=== PATIENT | female | born 1950 | race Caucasian/White ===

== ENCOUNTER → 2016-05-16 | Outpatient (CLI) | payer MEDICARE, OTHER | LOC: M WUC 12:10 | DX: E11.65 Type 2 diabetes mellitus with hyperglycemia (principal) ==

== ENCOUNTER → 2016-08-25 | Outpatient (CLI) | payer MEDICARE, OTHER ==
[2016-08-25 17:25] LABS: ALBUMIN 3.8 GM/DL (3.2-5.2); ALBUMIN/GLOBULIN RATIO 1.31 (1.00-1.93); ALKALINE PHOSPHATASE 92 U/L (45-117); ALT/SGPT 28 U/L (12-78); ANION GAP 9 MEQ/L (8-16); AST/SGOT 20 U/L (15-37); BILIRUBIN,TOTAL 0.7 MG/DL (0.2-1.0); BLOOD UREA NITROGEN 15 MG/DL (7-18); CALCIUM LEVEL 9.1 MG/DL (8.8-10.2); CARBON DIOXIDE LEVEL 27 MEQ/L (21-32); CHLORIDE LEVEL 104 MEQ/L (98-107); CHOLESTEROL LEVEL 190 MG/DL (<200); CREATININE FOR GFR 0.62 MG/DL (0.55-1.02); GLOMERULAR FILTRATION RATE > 60.0 (>45); GLUCOSE, FASTING 190 MG/DL (80-110); POTASSIUM SERUM 4.3 MEQ/L (3.5-5.1); SODIUM LEVEL 140 MEQ/L (136-145); TOTAL PROTEIN 6.7 GM/DL (6.4-8.2); TRIGLYCERIDES LEVEL 283 MG/DL (<150)
== END ==
LOC: M WUC 11:51
PROVIDERS: ATTEND Family Medicine
DX: E78.5 Hyperlipidemia, unspecified (principal); E11.9 Type 2 diabetes mellitus without complications

== ENCOUNTER → 2017-01-11 | Outpatient (CLI) | payer MEDICARE, OTHER ==
[2017-01-11 13:55] LABS: FREE T4 1.1 NG/DL (0.76-1.46)
== END ==
LOC: M WUC 09:08
PROVIDERS: ATTEND Family Medicine
DX: L74.519 Primary focal hyperhidrosis, unspecified (principal); E11.69 Type 2 diabetes mellitus with other specified complication

== ENCOUNTER → 2017-04-17 | Outpatient (CLI) | payer MEDICARE, OTHER ==
[2017-04-17 13:31] LABS: ESTIMATED AVERAGE GLUCOSE 189 MG/DL (60-110); HEMOGLOBIN A1c 8.2 %
[2017-04-17 13:51] LABS: MALB URINE SIEMENS 31.5 MG/L; MAU/CREAT RATIO 19.3 MCG/MG (0.0-30.0)
== END ==
LOC: M WUC 10:21
DX: E11.69 Type 2 diabetes mellitus with other specified complication (principal)
CPT/HCPCS: 83036

== ENCOUNTER → 2017-07-21 | Outpatient (CLI) | payer MEDICARE, BC ==
[2017-07-21 12:09] LABS: ESTIMATED AVERAGE GLUCOSE 180 MG/DL (60-110); HEMOGLOBIN A1c 7.9 %
== END ==
LOC: M WUC 10:40
DX: E11.69 Type 2 diabetes mellitus with other specified complication (principal)
CPT/HCPCS: 83036

== ENCOUNTER → 2017-10-09 | Outpatient (REF) | payer MEDICARE, OTHER ==
[2017-10-09 16:31] LABS: FERRITIN 202 NG/ML (8-252); FREE T4 1.11 NG/DL (0.76-1.46)
== END ==
LOC: M SFHCPLAZ 10:20
DX: Z00.00 Encounter for general adult medical examination without abnormal findings (principal); L65.9 Nonscarring hair loss, unspecified
CPT/HCPCS: 84443

== ENCOUNTER 2017-10-30 08:31 | Emergency (ER) | payer MEDICARE, BC, OTHER ==
[2017-10-30 09:42] LABS: BASO % 0.3 % (0.0-1.0); EOS # 0.2 10^3/uL (0.0-0.50); EOS % 1.7 % (0.0-3.0); HEMATOCRIT 40.6 % (36.0-47.0); HEMOGLOBIN 13.8 g/dl (12.0-15.5); IMMATURE GRANULOCYTE % 0.7 % (0-3.0); LYMPH # 1.6 10^3/uL (1.5-4.5); LYMPH % 12.9 % (24.0-44.0); MEAN CORPUSCULAR HEMOGLOBIN 30.3 pg (27.0-33.0); MEAN CORPUSCULAR VOLUME 89.2 fl (80.0-96.0); MONO % 8.5 % (0.0-5.0); NEUTROPHILS # 9.2 10^3/uL (1.8-7.7); NEUTROPHILS % 75.9 % (36.0-66.0); PLATELET COUNT, AUTOMATED 230 10^3/uL (150-450); RED BLOOD COUNT 4.55 10^6/uL (4.00-5.40); RED CELL DISTRIBUTION WIDTH 13.4 % (11.5-14.5); WHITE BLOOD COUNT 12.1 10^3/uL (4.0-10.0)
[2017-10-30] MEDS: GI COCKTAIL 50ML BTL(HYOSCYAMINE/MAALOX/LIDOCAINE VISCOUS)(1:3:1) PO (10:00)
[2017-10-30 10:33] LABS: ALBUMIN 3.6 GM/DL (3.2-5.2); ALBUMIN/GLOBULIN RATIO 1.03 (1.00-1.93); ALKALINE PHOSPHATASE 89 U/L (45-117); ALT/SGPT 27 U/L (12-78); ANION GAP 10 MEQ/L (8-16); AST/SGOT 22 U/L (7-37); BILIRUBIN,DIRECT 0.1 MG/DL (0.0-0.2); BILIRUBIN,TOTAL 0.5 MG/DL (0.2-1.0); BLOOD UREA NITROGEN 18 MG/DL (7-18); CALCIUM LEVEL 8.7 MG/DL (8.8-10.2); CARBON DIOXIDE LEVEL 24 MEQ/L (21-32); CHLORIDE LEVEL 103 MEQ/L (98-107); CPK CREATINE PHOSPHOKINASE 185 U/L (26-192); CREATININE FOR GFR 0.82 MG/DL (0.55-1.30); GLOMERULAR FILTRATION RATE > 60.0 (>45); GLUCOSE, FASTING 290 MG/DL (70-100); LIPASE 169 U/L (73-393); POTASSIUM SERUM 3.8 MEQ/L (3.5-5.1); SODIUM LEVEL 137 MEQ/L (136-145); TOTAL PROTEIN 7.1 GM/DL (6.4-8.2); TROPONIN I < 0.02 NG/ML (< 0.10)
[2017-10-30 10:38] LABS: CK-MB VALUE MASS 2.5 NG/ML (<3.6); FREE T4 1.04 NG/DL (0.76-1.46); MB/CK RELATIVE INDEX 1.35 (< OR =4)
[2017-10-30 13:40] LABS: CPK CREATINE PHOSPHOKINASE 147 U/L (26-192); MB/CK RELATIVE INDEX 1.36 (< OR =4); TROPONIN I < 0.02 NG/ML (< 0.10)
== END 2017-10-30 14:45 | disposition home or self-care (01) ==
LOC: M ED 08:31
DX: K21.9 Gastro-esophageal reflux disease without esophagitis (principal); E11.9 Type 2 diabetes mellitus without complications; I10 Essential (primary) hypertension; E78.5 Hyperlipidemia, unspecified; E66.9 Obesity, unspecified; G47.30 Sleep apnea, unspecified; F41.9 Anxiety disorder, unspecified; F32.9 Major depressive disorder, single episode, unspecified; K58.0 Irritable bowel syndrome with diarrhea; Z79.82 Long term (current) use of aspirin; Z79.84 Long term (current) use of oral hypoglycemic drugs; Z79.899 Other long term (current) drug therapy; Z88.0 Allergy status to penicillin; Z88.5 Allergy status to narcotic agent; Z88.1 Allergy status to other antibiotic agents
CPT/HCPCS: 71045

== ENCOUNTER → 2017-11-04 | Outpatient (CLI) | payer MEDICARE, BC, OTHER ==
[2017-11-04 18:06] LABS: ESTIMATED AVERAGE GLUCOSE 212 MG/DL (60-110)
== END ==
LOC: M WUC 13:00
DX: E11.69 Type 2 diabetes mellitus with other specified complication (principal)
CPT/HCPCS: 83036

== ENCOUNTER → 2018-01-03 | Outpatient (REF) | payer MEDICARE, OTHER | LOC: M LAB REF 16:44 | DX: K62.5 Hemorrhage of anus and rectum (principal) | CPT/HCPCS: 83993 ==

== ENCOUNTER → 2018-01-31 | Outpatient (CLI) | payer MEDICARE, OTHER ==
[~2018-01-31] MED LIST: AMLO5TAB4; ASPI81TA85 PO; CARV12.5; COLE1TAB; DULO1CAP3; GLIM4TAB; LOSA50TA73; MAGN64TASA PO; METF500T4; OMEP40CA2; SIMV40TA2; SUCR1SS PO; TRAD5TAB; TRIAMT/HCTZ
--- NOTE | 2018-01-31 19:18 | REP ---
Right shoulder: Three views. History: Shoulder pain. Findings: The right glenohumeral and acromioclavicular joints are normally aligned. Periarticular soft tissues are unremarkable. No erosive changes seen. Impression: Negative right shoulder radiographs. Electronically Signed by Deion Godoy MD 01/31/2018 07:10 P
== END ==
LOC: M RAD 17:41
PROVIDERS: ATTEND Nurse Practitioner Family
DX: M25.511 Pain in right shoulder (principal)
CPT/HCPCS: 73030; G0463

== ENCOUNTER → 2018-02-14 | Outpatient (CLI) | payer MEDICARE, BC, OTHER ==
--- NOTE | 2018-02-14 15:59 | REP ---
MRI right shoulder without contrast: History: Right shoulder impingement syndrome. Comparison shoulder radiographs January 31, 2018. Technique: Axial, oblique coronal and oblique sagittal imaging planes are utilized. T1 and T2-weighted scans were obtained in the usual fashion with and without fat saturation. MRI findings: Cortical and medullary bone signal intensity are normal. There is superior migration of the humeral head with narrowing and nearly complete obliteration of the subacromial space indicating a complete retracted full-thickness supraspinatus cuff tear. There is glenohumeral and subacromial subdeltoid joint and bursal effusion. There is bony hypertrophy on the undersurface of the acromion process. 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 No loose body is appreciated. The infraspinatus and subscapularis tendons appear intact. Biceps tendon is in the bony bicipital groove and appears intact. No labral cartilage tear is appreciated. There is a periarticular soft tissue edema pattern fairly diffusely. Impression: Joint effusion and subacromial subdeltoid bursal effusion associated with complete retracted supraspinatus cuff tear and narrowing of the subacromial space. Acromion process spurring and AC joint spurring are seen. Electronically Signed by Deion Godoy MD 02/14/2018 08:42 P
== END ==
LOC: M RAD 11:14
PROVIDERS: ATTEND Orthopaedic Surgery Sports Medicine
DX: M75.41 Impingement syndrome of right shoulder (principal)

== ENCOUNTER → 2018-07-26 | Outpatient (CLI) | payer MEDICARE, OTHER, BC ==
[~2018-07-26] MED LIST changes: -AMLO5TAB4; +AMLO5TAB6; -LOSA50TA73; +LOSA50TA88
[2018-07-26 16:50] LABS: BLOOD UREA NITROGEN 16 MG/DL (7-18); CALCIUM LEVEL 9.7 MG/DL (8.8-10.2); CARBON DIOXIDE LEVEL 30 MEQ/L (21-32); CHLORIDE LEVEL 102 MEQ/L (98-107); CHOLESTEROL LEVEL 203 MG/DL (<200); CHOLESTEROL RISK RATIO 4.833 (<5); CREATININE FOR GFR 0.77 MG/DL (0.55-1.30); GLOMERULAR FILTRATION RATE > 60.0 (>45); GLUCOSE, FASTING 241 MG/DL (70-100); HDL CHOLESTEROL 42 MG/DL (>40); LDL CHOLESTEROL 105 MG/DL (<100); MAGNESIUM LEVEL 2.2 MG/DL (1.8-2.4); NON-HDL-C 161 MG/DL; POTASSIUM SERUM 4.6 MEQ/L (3.5-5.1); SODIUM LEVEL 139 MEQ/L (136-145); TRIGLYCERIDES LEVEL 280 MG/DL (<150)
[2018-07-26 16:58] LABS: TOTAL 25(OH) VITAMIN D 33.2 NG/ML (30.0-100.0)
[2018-07-26 17:22] LABS: MALB URINE SIEMENS 30.8 MG/L; MAU/CREAT RATIO 22.4 MCG/MG (0.0-30.0)
== END ==
LOC: M WUC 11:45
PROVIDERS: ATTEND Family Medicine
DX: E78.2 Mixed hyperlipidemia (principal); E83.42 Hypomagnesemia; I10 Essential (primary) hypertension; R53.82 Chronic fatigue, unspecified

== ENCOUNTER → 2018-08-21 | Outpatient (CLI) | payer MEDICARE, BC ==
--- NOTE | 2018-08-21 12:47 | REPMRS ---
Patient History The patient states she has not had a clinical breast exam in over a year. Family history of colorectal cancer at age 50 or over in maternal grandfather, breast cancer under age 50 in maternal cousin. Digital Woman Screen Mammo: August 21, 2018 - Exam #: [id number] Bilateral CC and MLO view(s) were taken. Technologist: Sheela Arnold, Technologist Prior study comparison: June 27, 2017, digital woman screen mammo performed at [facility]. FINDINGS: There are scattered fibroglandular densities. Bilateral screening digital mammogram with tomosynthesis: The patient states that there are no palpable abnormalities or other breast complaints. The patient's Tyrer-Cuzieck Lifetime Breast Carcinoma Risk is:4.0%. There is no interval development of dominant mass, areas of architectural distortion, or clustered microcalcification typical of malignancy. There are no additional findings on tomosynthesis. This mammogram is interpreted with the aid of an FDA approved computer-aided detection system. Not all cancers are identified by mammography. Negative mammogram reports should not delay biopsy if a dominant or clinically suspicious mass is present. Adenosis and dense breasts may obscure an underlying neoplasm. No significant changes when compared with prior studies. Assessment: BI-RADS/ACR category 1 mammogram. Negative Mammogram. Recommendation Routine screening mammogram in 1 year (for women over age 40). This mammogram was interpreted with the aid of an FDA-approved computer-aided dectection system. A. Negative x-ray reports should not delay biopsy if a dominant or clinically suspicious mass is present. B. Not all cancers are identified by mammography. C. Adenosis and dense breast may obscure an underlying neoplasm. Electronically Signed By: Jm Ochoa M.D. 08/21/18 2920
== END ==
LOC: M WHC 11:09
PROVIDERS: ATTEND Family Medicine
DX: Z12.31 Encounter for screening mammogram for malignant neoplasm of breast (principal)

== ENCOUNTER → 2018-12-25 | Outpatient (REF) | payer MEDICARE, OTHER ==
[~2018-12-25] MED LIST changes: -DULO1CAP3; +DULO1CAP6; -GLIM4TAB; +GLIM4TAB3; +METF-791; -METF500T4; -OMEP40CA2; +OMEP40CA97
[2018-12-25 12:31] LABS: BLOOD UREA NITROGEN 17 MG/DL (7-18); CARBON DIOXIDE LEVEL 29 MEQ/L (21-32); CHLORIDE LEVEL 104 MEQ/L (98-107); CREATININE FOR GFR 0.69 MG/DL (0.55-1.30); FREE T4 1.01 NG/DL (0.76-1.46); GLOMERULAR FILTRATION RATE > 60.0 (>45); GLUCOSE, FASTING 209 MG/DL (70-100); POTASSIUM SERUM 4.1 MEQ/L (3.5-5.1); SODIUM LEVEL 140 MEQ/L (136-145)
== END ==
LOC: M SFHCPLAZ 09:39
PROVIDERS: ATTEND Nurse Practitioner Family
DX: I10 Essential (primary) hypertension (principal); R60.0 Localized edema
CPT/HCPCS: 36415; 80048; 84439; 84443; 90682; G0008; G0463

== ENCOUNTER → 2019-03-07 | Outpatient (CLI) | payer MEDICARE, BC, OTHER ==
[~2019-03-07] MED LIST changes: -SIMV40TA2; +SIMV40TA20
--- NOTE | 2019-03-07 12:40 | REP ---
NUCLEAR GASTRIC EMPTYING SCAN: Following the oral administration of 1.07 millicuries technetium 99, sulfur colloid in two scrambled eggs and 4 ounces of water, multiple images of the upper abdomen are performed for 90 minutes in the anterior and posterior projections. Gastric activity is measured. At the end of 90 minutes, approximately 40% of the ingested activity has emptied from the stomach. T-1/2 is calculated to be 99 minutes. This is essentially at the upper limits of normal. IMPRESSION: T-1/2 is calculated to be 99 minutes with a normal t-1/2 of 90 minutes. Therefore, gastric emptying time is upper limits of normal to slightly elevated. Electronically Signed by Jm Frost MD 03/07/2019 05:43 P
== END ==
LOC: M RAD 08:20
PROVIDERS: ATTEND Family Medicine
DX: R68.81 Early satiety (principal)
CPT/HCPCS: 78264; A9541

== ENCOUNTER → 2019-03-29 | Outpatient (CLI) | payer MEDICARE, BC, OTHER ==
[~2019-03-29] MED LIST changes: -GLIM4TAB3; +GLIM4TAB5
[2019-03-29 20:30] LABS: BLOOD UREA NITROGEN 19 MG/DL (7-18); CALCIUM LEVEL 9.2 MG/DL (8.8-10.2); CARBON DIOXIDE LEVEL 31 MEQ/L (21-32); CHLORIDE LEVEL 103 MEQ/L (98-107); CREATININE FOR GFR 0.83 MG/DL (0.55-1.30); GLOMERULAR FILTRATION RATE > 60.0 (>45); GLUCOSE, FASTING 222 MG/DL (70-100); POTASSIUM SERUM 4.4 MEQ/L (3.5-5.1); SODIUM LEVEL 140 MEQ/L (136-145)
== END ==
LOC: M WUC 15:42
PROVIDERS: ATTEND Family Medicine
DX: I10 Essential (primary) hypertension (principal)

== ENCOUNTER → 2019-04-16 | Outpatient (CLI) | payer MEDICARE, BC, OTHER ==
[~2019-04-16] MED LIST changes: +GASTROGRAFIN SOLUTION 30ML (Q9963) As Ordered ONE; +ISOVUE-370 76% 100ML VIAL (Q9967) As Ordered ONE
--- NOTE | 2019-04-16 13:00 | REP ---
Clinical: Abdominal pain. Technique: Axial contrast enhanced images from the lung bases to the pubic symphysis using oral (per protocol) and 100 ml Isovue 370 intravenous contrast material with coronal and sagittal re-formations. Comparison: 10/13/2006 Findings: Lung bases are clear. Visualized heart and pericardium normal. Liver, spleen, pancreas, bilateral adrenal glands and kidneys are normal. Evidence of prior cholecystectomy. The enteric system is without obstruction or acute inflammatory process. Sigmoid diverticulosis noted without acute diverticulitis. Pelvis demonstrates collapsed bladder and evidence for prior hysterectomy. 4 cm fat containing periumbilical hernia noted. No ascites. No free air. No adenopathy. Atherosclerotic changes to the aorta noted without aneurysm or dissection. Musculoskeletal structures demonstrate degenerative changes without acute focal abnormality. Impression: 1. No acute abdominopelvic pathology appreciated. 2. Diverticulosis without acute diverticulitis. 3. 4 cm fat containing periumbilical hernia. Electronically Signed by Hugh Herr MD 04/16/2019 12:51 P
== END ==
LOC: M RAD 09:33
PROVIDERS: ATTEND Family Medicine
DX: R10.84 Generalized abdominal pain (principal); K44.9 Diaphragmatic hernia without obstruction or gangrene; K57.92 Diverticulitis of intestine, part unspecified, without perforation or abscess without bleeding
CPT/HCPCS: 74177; Q9963; Q9967

== ENCOUNTER → 2019-08-20 | Outpatient (CLI) | payer MEDICARE, OTHER ==
[~2019-08-20] MED LIST changes: -GASTROGRAFIN SOLUTION 30ML (Q9963) As Ordered ONE; -ISOVUE-370 76% 100ML VIAL (Q9967) As Ordered ONE; -METF-791; +METF-838
[2019-08-20 10:44] LABS: ALBUMIN 3.7 GM/DL (3.2-5.2); ALT/SGPT 26 U/L (12-78); BILIRUBIN,TOTAL 0.6 MG/DL (0.2-1.0); BLOOD UREA NITROGEN 24 MG/DL (7-18); CALCIUM LEVEL 9.2 MG/DL (8.8-10.2); CARBON DIOXIDE LEVEL 29 MEQ/L (21-32); CHLORIDE LEVEL 103 MEQ/L (98-107); CHOLESTEROL LEVEL 188 MG/DL (<200); CHOLESTEROL RISK RATIO 5.081 (<5); CREATININE FOR GFR 0.91 MG/DL (0.55-1.30); GLOMERULAR FILTRATION RATE > 60.0 (>45); GLUCOSE, FASTING 232 MG/DL (70-100); HDL CHOLESTEROL 37 MG/DL (>40); LDL CHOLESTEROL 106 MG/DL (<100); NON-HDL-C 151 MG/DL; POTASSIUM SERUM 4.2 MEQ/L (3.5-5.1); SODIUM LEVEL 136 MEQ/L (136-145); TOTAL PROTEIN 6.8 GM/DL (6.4-8.2); TRIGLYCERIDES LEVEL 227 MG/DL (<150)
[2019-08-20 11:11] LABS: MALB URINE SIEMENS 22.6 MG/L; MAU/CREAT RATIO 15.8 MCG/MG (0.0-30.0)
== END ==
LOC: M PLALAB 08:14
PROVIDERS: ATTEND Nurse Practitioner Family
DX: E11.65 Type 2 diabetes mellitus with hyperglycemia (principal); E78.2 Mixed hyperlipidemia

== ENCOUNTER → 2019-08-20 | Outpatient (CLI) | payer MEDICARE, OTHER ==
--- NOTE | 2019-08-20 08:43 | REPPI ---
Left foot series: Four views. History: Swelling. Findings: Four views of the left foot show overall normal mineralization. There is plantar and Achilles calcaneal spurring. Mild midfoot osteoarthritic spurring is seen. There is no evidence of periosteal reaction, fracture, or other acute bony abnormality. Impression: Heel spurring and mild midfoot osteoarthritic spurring. No acute bony abnormality seen. Electronically Signed by Deion Godoy MD 08/20/2019 08:35 A
== END ==
LOC: M PLAIMG 08:11
PROVIDERS: ATTEND Family Medicine
DX: M77.32 Calcaneal spur, left foot (principal); M19.072 Primary osteoarthritis, left ankle and foot; M79.672 Pain in left foot; R22.42 Localized swelling, mass and lump, left lower limb; E11.65 Type 2 diabetes mellitus with hyperglycemia; E78.2 Mixed hyperlipidemia
CPT/HCPCS: 36415; 73630; 80053; 80061; 82043; 85025; 85652; 86140; G0463

== ENCOUNTER → 2019-08-20 | Outpatient (REF) | payer MEDICARE, OTHER ==
[2019-08-20 10:36] LABS: BASO % 0.2 % (0.0-1.0); EOS # 0.2 10^3/uL (0.0-0.5); EOS % 2.4 % (0.0-3.0); HEMATOCRIT 44.8 % (36.0-47.0); HEMOGLOBIN 14.8 g/dl (12.0-15.5); LYMPH # 2.1 10^3/uL (1.5-5.0); MEAN CORPUSCULAR VOLUME 90.7 fl (80.0-96.0); MONO # 0.8 10^3/uL (0.0-0.8); MONO % 8.2 % (0.0-5.0); NEUTROPHILS # 6.4 10^3/uL (1.5-8.5); NEUTROPHILS % 66.8 % (36.0-66.0); PLATELET COUNT, AUTOMATED 277 10^3/uL (150-450); RED BLOOD COUNT 4.94 10^6/uL (4.00-5.40); WHITE BLOOD COUNT 9.6 10^3/uL (4.0-10.0)
[2019-08-20 10:58] LABS: ERYTHROCYTE SEDIMENTATION RATE 12 mm/hr (0-30)
== END ==
LOC: M SFHCPLAZ 08:10
PROVIDERS: ATTEND Family Medicine
DX: M79.672 Pain in left foot (principal); R22.42 Localized swelling, mass and lump, left lower limb

== ENCOUNTER → 2019-10-10 | Outpatient (CLI) | payer MEDICARE, OTHER ==
[~2019-10-10] MED LIST changes: +AMLO1TAB24; -AMLO5TAB6; -ASPI81TA85 PO; +ASPI81TA86 PO
== END ==
LOC: M WHC 14:31
PROVIDERS: ATTEND Family Medicine
DX: Z12.31 Encounter for screening mammogram for malignant neoplasm of breast (principal)

== ENCOUNTER → 2019-10-10 | Outpatient (CLI) | payer MEDICARE, BC, OTHER ==
[~2019-10-10] MED LIST changes: +PROHANCE 279.3MG/ML 15ML VIAL ONE; +PROHANCE 279.3MG/ML 5ML VIAL ONE
--- NOTE | 2019-11-22 10:02 | REP ---
MRI OF LEFT FOOT WITH AND WITHOUT CONTRAST INDICATION: Palpable tender lump proximal left fifth metatarsal, recurrent cellulitis, poorly controlled diabetes. TECHNIQUE: Multiple sequences obtained in the axial, coronal and sagittal planes prior to and following the intravenous administration of 20 mL of ProHance. FINDINGS: Scattered, ill-defined, high signal is seen on T2 weighted images in the dorsal and lateral soft tissue of the foot, predominantly in the mid-foot. Post-contrast images, there is some ill-defined enhancement in the soft tissues along the lateral base of the fifth metatarsal. This is most consistent with an area of inflammation and cellulitis. No abscess is seen. There is no discrete enhancing mass. No other area of abnormal enhancement is seen. The osseous structures of the left foot demonstrate normal bone marrow signal with no bone marrow edema or enhancement. Tendons and ligaments at the ankle appear intact. The flexor and extensor tendons of the foot appear intact with no evidence of tenosynovitis. There is not a significant joint effusion IMPRESSION: Scattered edema in the left lateral mid foot extending in to the dorsal soft tissues of the foot. Ill-defined enhancement in the soft tissues adjacent to the lateral base of the fifth metatarsal, most consistent with a n area of focal inflammation and cellulitis. The area of enhancement is slightly greater than 1 cm in diameter. There is no discrete enhancing mass or evidence of focal fluid collection or abscess. There is no osteomyelitis. MTDD
== END ==
LOC: M RAD 16:15
PROVIDERS: ATTEND Family Medicine
DX: L03.116 Cellulitis of left lower limb (principal)
CPT/HCPCS: 73720; A9576

== ENCOUNTER → 2019-10-28 | Outpatient (CLI) | payer MEDICARE, BC ==
[~2019-10-28] MED LIST changes: -PROHANCE 279.3MG/ML 15ML VIAL ONE; -PROHANCE 279.3MG/ML 5ML VIAL ONE
--- NOTE | 2019-10-28 15:01 | REPMRS ---
Patient History The patient states she had a clinical breast exam in September 2019. Family history of colorectal cancer at age 50 or over in maternal grandfather, breast cancer under age 50 in maternal cousin. 3D TOMOSYNTHESIS WAS PERFORMED. The Kacy Mims lifetime risk for breast cancer is 3.7%. DANYELL Gresham. Digital Woman Screen Mammo: October 28, 2019 - Exam #: [id number] Bilateral CC and MLO view(s) were taken. Technologist: Razia Martinez, Technologist Prior study comparison: August 21, 2018, bilateral digital woman screen mammo performed at [facility]. June 27, 2017, digital woman screen mammo performed at [facility]. FINDINGS: There are scattered fibroglandular densities. There has been no change in the appearance of the mammogram from the prior studies. There is a mild amount of residual fibroglandular tissue which is fairly symmetric. There is no interval development of dominant mass, architectural distortion, or clustered microcalcification suggestive of malignancy. Assessment: BI-RADS/ACR category 1 mammogram. Negative Mammogram. Recommendation Routine screening mammogram in 1 year (for women over age 40). This mammogram was interpreted with the aid of an FDA-approved computer-aided dectection system. Electronically Signed By: Jm Frost MD 10/28/19 6660
== END ==
LOC: M WHC 14:11
PROVIDERS: ATTEND Family Medicine
DX: Z12.31 Encounter for screening mammogram for malignant neoplasm of breast (principal)

== ENCOUNTER → 2019-12-14 | Outpatient (CLI) | payer MEDICARE, BC, OTHER | LOC: M LABSMTC 10:46 | PROVIDERS: ATTEND Pediatrics | DX: Z01.812 Encounter for preprocedural laboratory examination (principal); Z20.828 Contact with and (suspected) exposure to other viral communicable diseases | CPT/HCPCS: C9803; U0003 ==

== ENCOUNTER → 2020-05-24 | Outpatient (CLI) | payer MEDICARE, BC, OTHER ==
[~2020-05-24] MED LIST changes: +DULA3PEN SC; +ECOT81TA5 PO; +EFFE150C2 PO; +NOVOINJ3 SC; +TRES1INJ SC; +TRIA37.53 PO
== END ==
LOC: M LABSMTC 08:53
PROVIDERS: ATTEND Anesthesiology
DX: Z01.812 Encounter for preprocedural laboratory examination (principal); Z20.828 Contact with and (suspected) exposure to other viral communicable diseases

== ENCOUNTER → 2020-05-26 | Outpatient (REF) | payer MEDICARE, OTHER ==
[2020-05-26 18:35] LABS: BLOOD UREA NITROGEN 21 MG/DL (7-18); CALCIUM LEVEL 9.1 MG/DL (8.8-10.2); CARBON DIOXIDE LEVEL 30 MEQ/L (21-32); CHLORIDE LEVEL 105 MEQ/L (98-107); CHOLESTEROL LEVEL 200 MG/DL (<200); CHOLESTEROL RISK RATIO 4.545 (<5); GLOMERULAR FILTRATION RATE > 60.0 (>45); GLUCOSE, FASTING 133 MG/DL (70-100); HDL CHOLESTEROL 44 MG/DL (>40); LDL CHOLESTEROL 108 MG/DL (<100); MAGNESIUM LEVEL 2.1 MG/DL (1.8-2.4); NON-HDL-C 156 MG/DL; POTASSIUM SERUM 4.1 MEQ/L (3.5-5.1); SODIUM LEVEL 140 MEQ/L (136-145); TRIGLYCERIDES LEVEL 241 MG/DL (<150)
== END ==
LOC: M SFHCPLAZ 15:35
PROVIDERS: ATTEND Dietitian, Registered Nutrition, Metabolic
DX: E78.2 Mixed hyperlipidemia (principal); E11.69 Type 2 diabetes mellitus with other specified complication; I10 Essential (primary) hypertension; E83.42 Hypomagnesemia

== ENCOUNTER → 2020-06-17 | Outpatient (REF) | payer MEDICARE, OTHER | LOC: M LAB REF 16:51 | PROVIDERS: ATTEND Internal Medicine Gastroenterology | DX: K58.0 Irritable bowel syndrome with diarrhea (principal) ==

== ENCOUNTER → 2020-08-16 | Outpatient (CLI) | payer MEDICARE, OTHER ==
[~2020-08-16] MED LIST changes: +OMEP40CA4; -OMEP40CA97
== END ==
LOC: M LABSMTC 09:07
PROVIDERS: ATTEND Anesthesiology
DX: Z01.818 Encounter for other preprocedural examination (principal); Z11.52 Encounter for screening for COVID-19

== ENCOUNTER 2020-08-21 08:21 | Day surgery (SDC) | payer MEDICARE, BC, OTHER ==
[~2020-08-21] VITALS: Ht 154.9 cm; Wt 128.5 kg
[~2020-08-21 08:21] MED LIST changes: +NS 1,000 ML IV ONE
[2020-08-21] MEDS ORDERED: propofoL 200 MG/20 ML VIAL As Ordered ONE ×3 (08:50→09:37)
[2020-08-21] MEDS ORDERED: LIDOCAINE 2% 100MG/5ML SDV (FOR ANES.) As Ordered ONE (08:50)
--- NOTE | 2020-08-21 09:17 | ROOR ---
Patient Name: Chloe Johnston Procedure Date: 08/21/2020 9:05 AM Date of : 1950 Age: 70 Room: [facility] Gender: Female Note Status: Finalized Procedure: Upper GI endoscopy Indications: Abdominal pain, Heartburn Providers: Evan Hammer MD Referring MD: Krissy Owen MD Requesting Provider: Medicines: Monitored Anesthesia Care Complications: No immediate complications. Procedure: Pre-Anesthesia Assessment: - The heart rate, respiratory rate, oxygen saturations, blood pressure, adequacy of pulmonary ventilation, and response to care were monitored throughout the procedure. The Endoscope was introduced through the mouth, and advanced to the second part of duodenum. The upper GI endoscopy was accomplished without difficulty. The patient tolerated the procedure well. Findings: The esophagus was normal. The stomach was normal. (compliant, large volume) The examined duodenum was normal. Impression: - Normal esophagus. - Normal stomach. - Normal examined duodenum. - No specimens collected. Recommendation: - Continue present medications. - Follow an antireflux regimen. Procedure Code(s): --- Professional --- 79161, Esophagogastroduodenoscopy, flexible, transoral; diagnostic, including collection of specimen(s) by brushing or washing, when performed (separate procedure) Diagnosis Code(s): --- Professional --- R12, Heartburn R10.9, Unspecified abdominal pain CPT copyright 2019 [employer]. All rights reserved. The codes documented in this report are preliminary and upon stave grader review may be revised to meet current compliance requirements. Evan Hammer MD Evan Hammer MD 08/21/2020 9:16:35 AM Electronically signed by Evan Hammer MD Number of Addenda: 0 Note Initiated On: 08/21/2020 9:05 AM Estimated Blood Loss: Estimated blood loss: none.
--- NOTE | 2020-08-21 09:50 | ROOR ---
Patient Name: Chloe Johnston Procedure Date: 08/21/2020 9:05 AM Date of : 1950 Age: 70 Room: [facility] Gender: Female Note Status: Finalized Procedure: Colonoscopy Indications: Follow-up of colitis, Irritable bowel syndrome with diarrhea Providers: Evan Hammer MD Referring MD: Krissy Owen MD Requesting Provider: Medicines: Monitored Anesthesia Care Complications: No immediate complications. Procedure: Pre-Anesthesia Assessment: - The heart rate, respiratory rate, oxygen saturations, blood pressure, adequacy of pulmonary ventilation, and response to care were monitored throughout the procedure. The Colonoscope was introduced through the anus and advanced to 5 cm into the ileum. The colonoscopy was somewhat difficult due to a redundant colon. Successful completion of the procedure was aided by applying abdominal pressure. Findings: The perianal and digital rectal examinations were normal. A 5 mm polyp was found in the sigmoid colon. The polyp was sessile. The polyp was removed with a cold snare. Resection and retrieval were complete. Mild sigmoid diverticulosis and small internal hemorrhoids. The exam was otherwise normal throughout the examined colon. The terminal ileum appeared normal. Biopsies for histology were taken with a cold forceps for evaluation of microscopic colitis. Impression: - One 5 mm polyp in the sigmoid colon, removed with a cold snare. Resected and retrieved. - Mild sigmoid diverticulosis and small internal hemorrhoids. - The rest of the colon and examined portion of the ileum are normal. - Biopsies were taken with a cold forceps for evaluation of microscopic colitis. - (Irritable Bowel Syndrome/IBS suspected.) Recommendation: - If the pathology report reveals adenomatous tissue, then repeat the colonoscopy for surveillance in 5 years. - Telephone endoscopist for pathology results in 2 weeks. Procedure Code(s): --- Professional --- 95559, Colonoscopy, flexible; with removal of tumor(s), polyp(s), or other lesion(s) by snare technique 75155, 59, Colonoscopy, flexible; with biopsy, single or multiple Diagnosis Code(s): --- Professional --- K58.0, Irritable bowel syndrome with diarrhea K52.9, Noninfective gastroenteritis and colitis, unspecified K63.5, Polyp of colon CPT copyright 2019 [employer]. All rights reserved. The codes documented in this report are preliminary and upon master glazier review may be revised to meet current compliance requirements. Evan Hammer MD Evan Hammer MD 08/21/2020 9:50:11 AM Electronically signed by Evan Hammer MD Number of Addenda: 0 Note Initiated On: 08/21/2020 9:05 AM Estimated Blood Loss: Estimated blood loss: none.
[2020-08-21 10:10] VITALS: BP 121/91
== END 2020-08-21 10:21 | disposition home or self-care (01) ==
LOC: M OPP 08:21
PROVIDERS: ATTEND Internal Medicine Gastroenterology
DX: K63.5 Polyp of colon (principal); K58.0 Irritable bowel syndrome with diarrhea; K57.30 Diverticulosis of large intestine without perforation or abscess without bleeding; K64.8 Other hemorrhoids; K22.8 Other specified diseases of esophagus; R12 Heartburn; R10.9 Unspecified abdominal pain; Z79.4 Long term (current) use of insulin; Z79.899 Other long term (current) drug therapy; Z88.1 Allergy status to other antibiotic agents; Z88.5 Allergy status to narcotic agent; Z88.2 Allergy status to sulfonamides; Z88.8 Allergy status to other drugs, medicaments and biological substances; Z91.040 Latex allergy status; Z91.048 Other nonmedicinal substance allergy status

== ENCOUNTER → 2020-12-10 | Outpatient (CLI) | payer MEDICARE, BC, OTHER ==
[~2020-12-10] MED LIST changes: -NS 1,000 ML IV ONE
--- NOTE | 2020-12-10 13:20 | REP ---
INDICATION: [facility] SCREEN MAMMO FOR MALIGNANT NEOPLASM OF BREAST. COMPARISON: 10/28/2019 as well as other prior exams. TECHNIQUE: MLO and CC views bilateral breasts. FINDINGS: Mild scattered fibroglandular tissue is present. There is a smoothly marginated 5 mm nodule in the outer right breast. I see no other evidence of mass or clustered microcalcifications. The Volpara volumetric breast density pattern is A. IMPRESSION: BIRADS/ACR category 0, incomplete. Smoothly marginated 5 mm nodule inferolateral right breast. Recommend spot compression views and ultrasound to further evaluate. This patient's Tyrer-Cuzick lifetime breast cancer risk assessment score is 3.4%. This mammogram was interpreted with the aid of an FDA-approved computer-aided detection system. The patient states she had a clinical breast exam in over 1 year ago. The patient letter being requested is M0. RECOMMENDATION: Recommend spot compression views and ultrasound right breast. <Electronically signed by Jm Frost > 12/10/20 2530
== END ==
LOC: M WHC 11:05
PROVIDERS: ATTEND Family Medicine
DX: Z12.31 Encounter for screening mammogram for malignant neoplasm of breast (principal)

== ENCOUNTER → 2020-12-11 | Outpatient (CLI) | payer MEDICARE, BC, OTHER | LOC: M LABSMTC 11:12 | PROVIDERS: ATTEND Pediatrics | DX: Z20.822 Contact with and (suspected) exposure to COVID-19 (principal) | CPT/HCPCS: C9803; U0003 ==

== ENCOUNTER → 2020-12-29 | Outpatient (CLI) | payer MEDICARE, BC, OTHER ==
--- NOTE | 2020-12-29 16:37 | REP ---
INDICATION: RIGHT BREAST ADD VIEWS. COMPARISON: 12/10/2020 as well as other prior exams. TECHNIQUE: Spot-compression tomographic sequences are obtained of the right breast. Focused right breast ultrasound also performed. FINDINGS: A smoothly marginated 5 mm nodule is again seen in the inferolateral right breast approximately 9 cm from the nipple. Focused right breast ultrasound in this region fails to reveal a cystic or solid nodule. IMPRESSION: BIRADS/ACR category 4, suspicious. Smoothly marginated 5 mm nodule inferolateral right breast with no sonographic correlate. Recommend stereotactic biopsy. This mammogram was interpreted with the aid of an FDA-approved computer-aided detection system. The patient letter being requested is M4. RECOMMENDATION: Recommend stereotactic biopsy 5 mm nodule inferolateral right breast. <Electronically signed by Jm Frost > 12/29/20 [id number]
== END ==
LOC: M WHC 15:14
PROVIDERS: ATTEND Family Medicine
DX: R92.8 Other abnormal and inconclusive findings on diagnostic imaging of breast (principal); N63.41 Unspecified lump in right breast, subareolar
CPT/HCPCS: 76642; 77065; G0279

== ENCOUNTER → 2021-01-07 | Outpatient (REF) | payer MEDICARE, BC, OTHER | LOC: M SFHCPLAZ 16:59 | PROVIDERS: ATTEND Family Medicine | DX: R09.82 Postnasal drip (principal) ==

== ENCOUNTER → 2021-01-14 | Outpatient (CLI) | payer MEDICARE, BC, OTHER ==
[2021-01-14 16:22] VITALS: BP 130/84
--- NOTE | 2021-01-15 07:46 | REP ---
INDICATION: STEREO BX RIGHT BREAST NODULE. COMPARISON: Right additional view mammogram 12/29/2020. TECHNIQUE: 2D and 3D cc and MLO views of the right breast were obtained following image guided biopsy. FINDINGS: The biopsy clip in the right breast corresponds to the area of the suspicious nodule in the right breast. IMPRESSION: Post image guided images of the right breast demonstrate the biopsy clip to be in the location of the suspicious nodule seen in the right breast. RECOMMENDATION: None. <Electronically signed by Marcio Caba > 01/15/21 0742
--- NOTE | 2021-01-15 08:21 | REP ---
INDICATION: STEREO BX RIGHT BREAST NODULE. COMPARISON: None. TECHNIQUE: This procedure is performed by MIREYA Terry, under the direct supervision of Dr. Caba. The risks and benefits of the procedure were explained to the patient and informed consent was obtained both verbally and written. Directly prior to the start of the procedure, a formal timeout was done in the procedure room. The cranial caudal approach was utilized on the prone table. The right breast nodule was localized using mammographic guidance. The skin was prepped and draped in a sterile fashion. Seventeen ml of buffered lidocaine 1% lidocaine 10 mg/ml was used as a local anesthetic. FINDINGS: A 10 gauge mammotome biopsy device was inserted and advanced into the breast lesion and 6 core biopsy samples were obtained. A marker clip was placed at the biopsy site. The patient tolerated the procedure well and there were no immediate complications. After the appropriate amount of monitored convalescence the patient was discharged from the department. IMPRESSION: Technically successful right breast stereotactic biopsy yielding 6 core biopsy specimens. These were sent to the lab for further evaluation, results pending. <Electronically signed by Corinne Huff > 01/15/21 0801 <Electronically signed by Marcio Caba > 01/15/21 0817
== END ==
LOC: M WHCPRO 14:10
PROVIDERS: ATTEND Family Medicine
DX: D24.1 Benign neoplasm of right breast (principal); N63.10 Unspecified lump in the right breast, unspecified quadrant; R92.8 Other abnormal and inconclusive findings on diagnostic imaging of breast

== ENCOUNTER → 2021-01-29 | Outpatient (CLI) | payer MEDICARE, BC, OTHER ==
[2021-01-29 13:57] LABS: MALB URINE SIEMENS 18.5 MG/L; MAU/CREAT RATIO 16.5 MCG/MG (0.0-30.0)
== END ==
LOC: M PLALAB 10:18
PROVIDERS: ATTEND Internal Medicine Endocrinology, Diabetes & Metabolism
DX: E11.65 Type 2 diabetes mellitus with hyperglycemia (principal)

== ENCOUNTER → 2021-01-29 | Outpatient (CLI) | payer MEDICARE, BC, OTHER ==
--- NOTE | 2021-01-29 13:53 | REP ---
INDICATION: PAIN IN LEFT KNEE COMPARISON: None TECHNIQUE: Five views FINDINGS: There is tricompartmental marginal osteophytosis with medial compartmental and patellofemoral joint space narrowing. There is no acute fracture, dislocation, or subluxation IMPRESSION: Chronic changes as described above. <Electronically signed by Raza Bueno > 01/29/21 2185
[2021-01-29 14:05] LABS: BLOOD UREA NITROGEN 26 MG/DL (7-18); CALCIUM LEVEL 9.3 MG/DL (8.8-10.2); CARBON DIOXIDE LEVEL 30 MEQ/L (21-32); CHLORIDE LEVEL 106 MEQ/L (98-107); CREATININE FOR GFR 0.72 MG/DL (0.55-1.30); GLOMERULAR FILTRATION RATE > 60.0 (>39); GLUCOSE, FASTING 186 MG/DL (70-100); POTASSIUM SERUM 4.1 MEQ/L (3.5-5.1); SODIUM LEVEL 140 MEQ/L (136-145)
== END ==
LOC: M PLAIMG 10:20
PROVIDERS: ATTEND Family Medicine
DX: M17.12 Unilateral primary osteoarthritis, left knee (principal); I10 Essential (primary) hypertension; E11.65 Type 2 diabetes mellitus with hyperglycemia

== ENCOUNTER → 2021-06-30 | Outpatient (CLI) | payer MEDICARE, BC, OTHER ==
[~2021-06-30] MED LIST changes: +LOSA50TA28; -LOSA50TA88
== END ==
LOC: M PLALAB 14:09
PROVIDERS: ATTEND Family Medicine
DX: M25.762 Osteophyte, left knee (principal)

== ENCOUNTER → 2021-07-16 | Outpatient (CLI) | payer MEDICARE, BC, OTHER | LOC: M WHC 14:05 | PROVIDERS: ATTEND Family Medicine | DX: M85.831 Other specified disorders of bone density and structure, right forearm (principal) ==

== ENCOUNTER → 2021-07-22 | Outpatient (CLI) | payer MEDICARE, BC, OTHER ==
[2021-07-22 13:43] LABS: CHOLESTEROL RISK RATIO 3.604 (<5)
== END ==
LOC: M PLALAB 12:13
PROVIDERS: ATTEND Family Medicine
DX: E78.2 Mixed hyperlipidemia (principal)

== ENCOUNTER → 2021-10-27 | Outpatient (CLI) | payer MEDICARE, BC, OTHER ==
[~2021-10-27] MED LIST changes: -TRIA37.53 PO; +TRIA37.577 PO
== END ==
LOC: M RAD 14:18
PROVIDERS: ATTEND Physician Assistant
DX: J32.0 Chronic maxillary sinusitis (principal); R51.9 Headache, unspecified

== ENCOUNTER → 2022-01-26 | Outpatient (CLI) | payer MEDICARE, BC, OTHER ==
[2022-01-26 13:21] LABS: HEMATOCRIT 44.4 % (36.0-47.0); HEMOGLOBIN 14.3 g/dl (12.0-15.5); MEAN CORPUSCULAR HEMOGLOBIN 29.6 pg (27.0-33.0); MEAN CORPUSCULAR HGB CONC 32.2 g/dl (32.0-36.5); MEAN CORPUSCULAR VOLUME 91.9 fl (80.0-96.0); PLATELET COUNT, AUTOMATED 253 10^3/uL (150-450); RED BLOOD COUNT 4.83 10^6/uL (4.00-5.40); WHITE BLOOD COUNT 8.5 10^3/uL (4.0-10.0)
[2022-01-26 13:38] LABS: ALBUMIN 3.9 G/DL (3.2-5.2); ALKALINE PHOSPHATASE 79 U/L (46-116); ALT/SGPT 20 U/L (7.0-40); AST/SGOT 16 U/L (<34); BILIRUBIN,TOTAL 0.5 MG/DL (0.3-1.2); BLOOD UREA NITROGEN 21 MG/DL (9-23); CALCIUM LEVEL 9.1 MG/DL (8.3-10.6); CARBON DIOXIDE LEVEL 30 MMOL/L (20-31); CHLORIDE LEVEL 101 MMOL/L (98-107); CREATININE FOR GFR 0.66 MG/DL (0.55-1.30); GLOMERULAR FILTRATION RATE > 60.0 (>39); GLUCOSE, FASTING 182 MG/DL (74-106); SODIUM LEVEL 138 MMOL/L (136-145); TOTAL PROTEIN 6.5 G/DL (5.7-8.2)
== END ==
LOC: M WUC 08:46
PROVIDERS: ATTEND Physician Assistant
DX: I10 Essential (primary) hypertension (principal); G47.33 Obstructive sleep apnea (adult) (pediatric)

== ENCOUNTER → 2022-01-26 | Outpatient (CLI) | payer MEDICARE, BC, OTHER ==
[2022-01-26 13:26] LABS: APPEARANCE, URINE MANUAL HAZY (CLEAR); COLOR, URINE MANUAL YELLOW (YELLOW); GLUCOSE, URINE (UA) MANUAL NEGATIVE (NEGATIVE); KETONE, URINE MANUAL NEGATIVE (NEGATIVE); PROTEIN, URINE MANUAL 1+ mg/dL (NEGATIVE); UROBILINOGEN, URINE MANUAL NORMAL (NORMAL)
[2022-01-26 13:27] LABS: BILIRUBIN, URINE MANUAL NEGATIVE (NEGATIVE); BLOOD URINE MANUAL NEGATIVE (NEGATIVE); LEUKOCYTE ESTERASE, URINE MAN POSITIVE (NEGATIVE); NITRITE, URINE MANUAL NEGATIVE (NEGATIVE)
[2022-01-26 13:43] LABS: WBC, URINE 15-20 /hpf (0-3)
[2022-01-26 13:44] LABS: BACTERIA, URINE MOD AMOUNT; RBC, URINE 0-1 /hpf (0-3); SQUAMOUS EPITHELIAL CELL URINE MOD AMOUNT /hpf (SMALL AMT)
== END ==
LOC: M WUC 08:43
PROVIDERS: ATTEND Urology
DX: N39.0 Urinary tract infection, site not specified (principal)

== ENCOUNTER → 2022-01-26 | Outpatient (CLI) | payer MEDICARE, BC, OTHER ==
[2022-01-26 14:13] LABS: CREATININE, URINE 168.6 MG/DL; MAU/CREAT RATIO 16.6 MCG/MG (0.0-30.0)
== END ==
LOC: M WUC 08:40
PROVIDERS: ATTEND Internal Medicine Endocrinology, Diabetes & Metabolism
DX: E11.65 Type 2 diabetes mellitus with hyperglycemia (principal)

== ENCOUNTER → 2022-01-28 | Outpatient (REF) | payer MEDICARE, BC, OTHER | LOC: M LAB REF 20:30 | PROVIDERS: ATTEND Physician Assistant | DX: R82.71 Bacteriuria (principal) ==

== ENCOUNTER → 2022-02-09 | Outpatient (CLI) | payer MEDICARE, BC, OTHER | LOC: M WHC 12:55 | PROVIDERS: ATTEND Physician Assistant | DX: Z12.31 Encounter for screening mammogram for malignant neoplasm of breast (principal) ==

== ENCOUNTER → 2022-04-11 | Outpatient (CLI) | payer MEDICARE, BC, OTHER | LOC: M PLALAB 16:55 | PROVIDERS: ATTEND Physician Assistant | DX: R05.2 Subacute cough (principal) ==

== ENCOUNTER → 2022-06-07 | Outpatient (CLI) | payer MEDICARE, BC, OTHER | LOC: M WHC 07:22 | PROVIDERS: ATTEND Physician Assistant | DX: N63.20 Unspecified lump in the left breast, unspecified quadrant (principal); M79.622 Pain in left upper arm ==

== ENCOUNTER → 2022-07-27 | Outpatient (CLI) | payer MEDICARE, BC, OTHER ==
[2022-07-27 16:23] LABS: ALBUMIN 3.9 G/DL (3.2-5.2); ALKALINE PHOSPHATASE 98 U/L (46-116); ALT/SGPT 17 U/L (7.0-40); AST/SGOT 15 U/L (<34); BILIRUBIN,TOTAL 0.5 MG/DL (0.3-1.2); BLOOD UREA NITROGEN 24 MG/DL (9-23); CALCIUM LEVEL 9.2 MG/DL (8.3-10.6); CARBON DIOXIDE LEVEL 28 MMOL/L (20-31); CHLORIDE LEVEL 103 MMOL/L (98-107); CREATININE FOR GFR 0.63 MG/DL (0.55-1.30); GLOMERULAR FILTRATION RATE > 60.0 (>39); GLUCOSE, FASTING 224 MG/DL (74-106); POTASSIUM SERUM 4.7 MMOL/L (3.5-5.1); SODIUM LEVEL 139 MMOL/L (136-145); TOTAL PROTEIN 6.5 G/DL (5.7-8.2)
== END ==
LOC: M PLALAB 14:37
PROVIDERS: ATTEND Nurse Practitioner Family
DX: L72.3 Sebaceous cyst (principal)

== ENCOUNTER → 2022-08-10 | Outpatient (REF) | payer MEDICARE, OTHER | LOC: M LAB REF 17:29 | PROVIDERS: ATTEND Surgery | DX: D48.5 Neoplasm of uncertain behavior of skin (principal) ==

== ENCOUNTER → 2022-08-12 | Outpatient (CLI) | payer MEDICARE, BC, OTHER ==
[2022-08-12 14:05] LABS: ALBUMIN 4.1 G/DL (3.2-5.2); ALKALINE PHOSPHATASE 88 U/L (46-116); ALT/SGPT 18 U/L (7.0-40); AST/SGOT 11 U/L (<34); BILIRUBIN,TOTAL 0.7 MG/DL (0.3-1.2); BLOOD UREA NITROGEN 21 MG/DL (9-23); CALCIUM LEVEL 10.4 MG/DL (8.3-10.6); CARBON DIOXIDE LEVEL 28 MMOL/L (20-31); CHLORIDE LEVEL 102 MMOL/L (98-107); CREATININE FOR GFR 0.71 MG/DL (0.55-1.30); GLOMERULAR FILTRATION RATE > 60.0 (>39); GLUCOSE, FASTING 165 MG/DL (74-106); POTASSIUM SERUM 4.6 MMOL/L (3.5-5.1); SODIUM LEVEL 139 MMOL/L (136-145); TOTAL PROTEIN 6.6 G/DL (5.7-8.2)
== END ==
LOC: M PLALAB 11:16
PROVIDERS: ATTEND Nurse Practitioner Family
DX: L72.3 Sebaceous cyst (principal)

== ENCOUNTER → 2022-08-16 | Outpatient (CLI) | payer MEDICARE, BC, OTHER | LOC: M PLAIMG 10:01 | PROVIDERS: ATTEND Physician Assistant | DX: M25.572 Pain in left ankle and joints of left foot (principal) ==

== ENCOUNTER → 2022-09-09 | Outpatient (CLI) | payer MEDICARE, BC, OTHER ==
[2022-09-09 11:25] LABS: CHOLESTEROL RISK RATIO 3.97 (<5); LDL CHOLESTEROL 75.2 MG/DL (<100)
== END ==
LOC: M PLALAB 08:55
PROVIDERS: ATTEND Physician Assistant
DX: E78.00 Pure hypercholesterolemia, unspecified (principal)

== ENCOUNTER → 2022-12-06 | Outpatient (CLI) | payer MEDICARE, BC, OTHER | LOC: M WHC 12:51 | PROVIDERS: ATTEND Physician Assistant Surgical | DX: M79.605 Pain in left leg (principal) ==

== ENCOUNTER → 2023-01-02 | Outpatient (CLI) | payer MEDICARE, BC, OTHER | LOC: M PLAIMG 10:52 | PROVIDERS: ATTEND Physician Assistant Surgical | DX: M47.896 Other spondylosis, lumbar region (principal) ==

== ENCOUNTER → 2023-01-17 | Outpatient (CLI) | payer MEDICARE, BC, OTHER ==
[2023-01-17 18:29] LABS: HEMOGLOBIN A1c 6.5 % (4.0-6.0)
== END ==
LOC: M PLALAB 15:49
PROVIDERS: ATTEND Internal Medicine Endocrinology, Diabetes & Metabolism
DX: E11.65 Type 2 diabetes mellitus with hyperglycemia (principal)

== ENCOUNTER → 2023-02-14 | Outpatient (CLI) | payer MEDICARE, BC, OTHER ==
[~2023-02-14] MED LIST changes: -EFFE150C2 PO; +EFFE150C3 PO
== END ==
LOC: M WHC 11:22
PROVIDERS: ATTEND Physician Assistant
DX: Z12.31 Encounter for screening mammogram for malignant neoplasm of breast (principal)

== ENCOUNTER → 2023-02-16 | Outpatient (CLI) | payer MEDICARE, BC, OTHER | LOC: M WHC 08:52 | PROVIDERS: ATTEND Physician Assistant | DX: I77.819 Aortic ectasia, unspecified site (principal) ==

== ENCOUNTER → 2023-03-07 | Outpatient (REF) | payer MEDICARE, BC, OTHER ==
[2023-03-07 18:11] LABS: BASO % 0.3 % (0.0-1.0); EOS # 0.3 10^3/uL (0.0-0.5); HEMATOCRIT 45.6 % (36.0-47.0); HEMOGLOBIN 14.7 g/dl (12.0-15.5); LYMPH # 2.4 10^3/uL (1.5-5.0); LYMPH % 24.3 % (24.0-44.0); MEAN CORPUSCULAR HEMOGLOBIN 30.1 pg (27.0-33.0); MEAN CORPUSCULAR HGB CONC 32.2 g/dl (32.0-36.5); MEAN CORPUSCULAR VOLUME 93.4 fl (80.0-96.0); MONO # 0.7 10^3/uL (0.0-0.8); MONO % 7.1 % (2.0-8.0); NEUTROPHILS # 6.3 10^3/uL (1.5-8.5); NEUTROPHILS % 64.6 % (36.0-66.0); PLATELET COUNT, AUTOMATED 294 10^3/uL (150-450); RED BLOOD COUNT 4.88 10^6/uL (4.00-5.40); WHITE BLOOD COUNT 9.8 10^3/uL (4.0-10.0)
[2023-03-07 18:39] LABS: ERYTHROCYTE SEDIMENTATION RATE 34 mm/hr (0-30)
== END ==
LOC: M LABDRAWP 17:21
PROVIDERS: ATTEND Optometrist
DX: M31.6 Other giant cell arteritis (principal)

== ENCOUNTER → 2023-03-17 | Outpatient (REF) | payer MEDICARE, BC, OTHER | LOC: M SFHCDERM 13:57 | PROVIDERS: ATTEND Dermatology | DX: D23.10 Other benign neoplasm of skin of unspecified eyelid, including canthus (principal) ==

== ENCOUNTER → 2023-04-05 | Outpatient (REF) | payer MEDICARE, BC, OTHER | LOC: M SFHCPLAZ 16:35 | PROVIDERS: ATTEND Physician Assistant | DX: E11.69 Type 2 diabetes mellitus with other specified complication (principal); E78.2 Mixed hyperlipidemia; I10 Essential (primary) hypertension; E83.42 Hypomagnesemia ==

== ENCOUNTER → 2023-04-08 | Outpatient (REF) | payer MEDICARE, BC, OTHER | LOC: M LAB REF 04-07 20:30 | PROVIDERS: ATTEND Physician Assistant | DX: R19.7 Diarrhea, unspecified (principal) ==

== ENCOUNTER → 2023-06-27 | Outpatient (CLI) | payer MEDICARE, BC ==
[2023-06-27 11:15] LABS: BASO % 0.3 % (0.0-1.0); EOS # 0.3 10^3/uL (0.0-0.5); EOS % 2.7 % (0.0-3.0); HEMATOCRIT 45.7 % (36.0-47.0); HEMOGLOBIN 14.5 g/dl (12.0-15.5); LYMPH # 2.7 10^3/uL (1.5-5.0); LYMPH % 27.8 % (24.0-44.0); MEAN CORPUSCULAR HEMOGLOBIN 29.7 pg (27.0-33.0); MEAN CORPUSCULAR HGB CONC 31.7 g/dl (32.0-36.5); MEAN CORPUSCULAR VOLUME 93.5 fl (80.0-96.0); MONO # 0.7 10^3/uL (0.0-0.8); MONO % 7.5 % (2.0-8.0); NEUTROPHILS # 5.9 10^3/uL (1.5-8.5); NEUTROPHILS % 61.3 % (36.0-66.0); PLATELET COUNT, AUTOMATED 253 10^3/uL (150-450); RED BLOOD COUNT 4.89 10^6/uL (4.00-5.40); WHITE BLOOD COUNT 9.6 10^3/uL (4.0-10.0)
[2023-06-27 11:29] LABS: HEMOGLOBIN A1c 6.7 % (4.0-6.0)
[2023-06-27 11:39] LABS: CREATININE, URINE 105.4 MG/DL; MAU/CREAT RATIO 25.6 MCG/MG (0.0-30.0)
[2023-06-27 11:40] LABS: ALBUMIN 3.9 G/DL (3.2-5.2); ALKALINE PHOSPHATASE 92 U/L (46-116); ALT/SGPT 21 U/L (7.0-40); AST/SGOT 12 U/L (<34); BILIRUBIN,TOTAL 0.6 MG/DL (0.3-1.2); BLOOD UREA NITROGEN 22 MG/DL (9-23); CALCIUM LEVEL 9.7 MG/DL (8.3-10.6); CARBON DIOXIDE LEVEL 30 MMOL/L (20-31); CHLORIDE LEVEL 104 MMOL/L (98-107); CHOLESTEROL LEVEL 160 MG/DL (<200); CHOLESTEROL RISK RATIO 3.98 (<5); CREATININE FOR GFR 0.69 MG/DL (0.55-1.30); GLOMERULAR FILTRATION RATE > 60.0 (>39); GLUCOSE, FASTING 132 MG/DL (74-106); HDL CHOLESTEROL 40.2 MG/DL (>40); LDL CHOLESTEROL 84.6 MG/DL (<100); MAGNESIUM LEVEL 2.2 MG/DL (1.8-2.4); NON-HDL-C 119.8 MG/DL; POTASSIUM SERUM 4.5 MMOL/L (3.5-5.1); SODIUM LEVEL 140 MMOL/L (136-145); TOTAL PROTEIN 6.5 G/DL (5.7-8.2); TRIGLYCERIDES LEVEL 176 MG/DL (<150)
== END ==
LOC: M PLALAB 08:04
PROVIDERS: ATTEND Physician Assistant
DX: E11.69 Type 2 diabetes mellitus with other specified complication (principal); E78.2 Mixed hyperlipidemia; I10 Essential (primary) hypertension; E83.42 Hypomagnesemia

== ENCOUNTER → 2023-07-21 | Outpatient (CLI) | payer MEDICARE, BC | LOC: M WHC 14:04 | PROVIDERS: ATTEND Physician Assistant | DX: Z13.820 Encounter for screening for osteoporosis (principal); M81.0 Age-related osteoporosis without current pathological fracture ==

== ENCOUNTER → 2023-12-29 | Outpatient (CLI) | payer MEDICARE, BC ==
[2023-12-29 12:30] LABS: BASO % 0.3 % (0.0-1.0); EOS # 0.2 10^3/uL (0.0-0.5); EOS % 2.7 % (0.0-3.0); HEMATOCRIT 43.4 % (36.0-47.0); LYMPH # 2.3 10^3/uL (1.5-5.0); LYMPH % 26.3 % (24.0-44.0); MEAN CORPUSCULAR HEMOGLOBIN 29.7 pg (27.0-33.0); MEAN CORPUSCULAR HGB CONC 32.3 g/dl (32.0-36.5); MEAN CORPUSCULAR VOLUME 91.9 fl (80.0-96.0); MONO # 0.8 10^3/uL (0.0-0.8); MONO % 8.9 % (2.0-8.0); NEUTROPHILS # 5.3 10^3/uL (1.5-8.5); NEUTROPHILS % 61.2 % (36.0-66.0); PLATELET COUNT, AUTOMATED 242 10^3/uL (150-450); RED BLOOD COUNT 4.72 10^6/uL (4.00-5.40); WHITE BLOOD COUNT 8.6 10^3/uL (4.0-10.0)
[2023-12-29 12:37] LABS: ALBUMIN 3.9 G/DL (3.2-5.2); ALKALINE PHOSPHATASE 90 U/L (35-104); ALT/SGPT 15 U/L (7.0-40); AST/SGOT 10 U/L (<34); BILIRUBIN,TOTAL 0.7 MG/DL (0.3-1.2); BLOOD UREA NITROGEN 26 MG/DL (9-23); CARBON DIOXIDE LEVEL 26 MMOL/L (20-31); CHLORIDE LEVEL 108 MMOL/L (98-107); CREATININE FOR GFR 0.72 MG/DL (0.55-1.30); GLOMERULAR FILTRATION RATE > 60.0 (>39); GLUCOSE, FASTING 169 MG/DL (74-106); POTASSIUM SERUM 4.6 MMOL/L (3.5-5.1); SODIUM LEVEL 141 MMOL/L (136-145); TOTAL PROTEIN 6.8 G/DL (5.7-8.2)
[2023-12-29 12:38] LABS: THYROID STIMULATING HORMONE 2.176 uIU/ML (0.55-4.78)
[2023-12-29 12:39] LABS: FREE T4 1.04 NG/DL (0.89-1.76); TOTAL 25(OH) VITAMIN D 43.4 NG/ML (20.0-100.0); VITAMIN B12 LEVEL 391 PG/ML (211-911)
== END ==
LOC: M PLALAB 10:01
PROVIDERS: ATTEND Physician Assistant
DX: R61 Generalized hyperhidrosis (principal); E11.69 Type 2 diabetes mellitus with other specified complication

== ENCOUNTER → 2023-12-29 | Outpatient (REF) | payer MEDICARE, BC ==
[2023-12-29 13:32] LABS: CREATININE, URINE 130.1 MG/DL
== END ==
LOC: M LAB REF 12:39
PROVIDERS: ATTEND Internal Medicine Endocrinology, Diabetes & Metabolism
DX: E11.65 Type 2 diabetes mellitus with hyperglycemia (principal)

== ENCOUNTER → 2024-02-26 | Outpatient (CLI) | payer MEDICARE, BC | LOC: M WHC 12:54 | PROVIDERS: ATTEND Physician Assistant | DX: Z12.31 Encounter for screening mammogram for malignant neoplasm of breast (principal); N64.4 Mastodynia | CPT/HCPCS: 77066; G0279 ==

== ENCOUNTER → 2024-03-15 | Outpatient (CLI) | payer MEDICARE, BC ==
[2024-03-15 18:39] LABS: APPEARANCE, URINE HAZY (CLEAR); BACTERIA, URINE AUTO NEGATIVE (NEGATIVE); BILIRUBIN, URINE AUTO NEGATIVE (NEGATIVE); BLOOD, URINE BLOOD NEGATIVE (NEGATIVE); COLOR, URINE YELLOW (YELLOW); GLUCOSE, URINE (UA) AUTO NEGATIVE (NEGATIVE); KETONE, URINE AUTO NEGATIVE (NEGATIVE); LEUKOCYTE ESTERASE, URINE AUTO NEGATIVE (NEGATIVE); NITRITE, URINE AUTO NEGATIVE (NEGATIVE); PROTEIN, URINE AUTO NEGATIVE (NEGATIVE); RBC, URINE AUTO 0 /HPF (0-3); SPECIFIC GRAVITY URINE AUTO 1.021 (1.002-1.035); SQUAMOUS EPITHELIAL CELL UR AU 4 /HPF (0-6); UROBILINOGEN, URINE AUTO 0.2 mg/dL (0.0-2.0); WBC, URINE AUTO 2 /HPF (0-3)
[2024-03-15 19:03] LABS: CREATININE, URINE 72.3 MG/DL
[2024-03-15 19:09] LABS: ALBUMIN 3.9 G/DL (3.2-5.2); ALKALINE PHOSPHATASE 95 U/L (35-104); ALT/SGPT 22 U/L (7.0-40); AST/SGOT 13 U/L (<34); BILIRUBIN,TOTAL 0.5 MG/DL (0.3-1.2); BLOOD UREA NITROGEN 30 MG/DL (9-23); CALCIUM LEVEL 10.4 MG/DL (8.3-10.6); CARBON DIOXIDE LEVEL 28 MMOL/L (20-31); CHLORIDE LEVEL 105 MMOL/L (98-107); CREATININE FOR GFR 0.56 MG/DL (0.55-1.30); GLOMERULAR FILTRATION RATE > 60.0 (>39); GLUCOSE, FASTING 166 MG/DL (74-106); POTASSIUM SERUM 4.8 MMOL/L (3.5-5.1); SODIUM LEVEL 142 MMOL/L (136-145); TOTAL PROTEIN 7.2 G/DL (5.7-8.2)
[2024-03-15 19:51] LABS: HEMOGLOBIN A1c 7.5 % (4.0-6.0)
== END ==
LOC: M PLALAB 14:59
PROVIDERS: ATTEND Family Medicine
DX: E11.69 Type 2 diabetes mellitus with other specified complication (principal); R32 Unspecified urinary incontinence

== ENCOUNTER → 2024-10-21 | Outpatient (CLI) | payer MEDICARE, BC | LOC: M RAD 11:14 | PROVIDERS: ATTEND Radiology Diagnostic Radiology | DX: R60.9 Edema, unspecified (principal) ==